=== PATIENT | female | born 1995 | race Two or more races ===

== ENCOUNTER 2017-08-15 20:00 | Inpatient (IN) | payer BC, OTHER ==
[~2017-08-15] VITALS: Ht 157.5 cm; Wt 68.4 kg
[2017-08-15] MEDS ORDERED: HYDROCODONE/APAP (5/325) TAB PO PRN (22:30)
[2017-08-15] MEDS ORDERED: CARBOPROST 250 MCG INJ IM PRN (22:30)
[2017-08-15] MEDS ORDERED: LACTATED RINGER'S 1,000 ML IV PRN (22:30)
[2017-08-15] MEDS ORDERED: OXYTOCIN 30 UNITS/LR 500 ML IV PRN (22:30)
[2017-08-15] MEDS ORDERED: BUTORPHANOL 2 MG INJ IV PRN ×2 (22:30)
[2017-08-15] MEDS ORDERED: OXYTOCIN 30 UNITS/LR 500 ML IV SCH ×3 (22:30)
[2017-08-15] MEDS ORDERED: IBUPROFEN 600 MG TAB PO PRN (22:30)
[2017-08-15] MEDS ORDERED: LIDOCAINE 1% (MPF) 30 ML INJ INJ PRN (22:30)
[2017-08-15] MEDS ORDERED: METHYLERGONOVINE 0.2 MG INJ IM PRN (22:30)
[2017-08-15] MEDS ORDERED: MISOPROSTOL 200 MCG TAB PR PRN (22:30)
[2017-08-15 22:37] LABS: BASOPHILS % 0.3 % (0.0-2.0); EOSINOPHILS # 0.5 10^3/ul (0.0-0.5); EOSINOPHILS % 4.2 % (0.0-7.0); HEMATOCRIT 32.5 % (37.0-47.0); LYMPHOCYTES # 2.1 10^3/ul (0.8-2.9); LYMPHOCYTES % 17.9 % (15.0-51.0); MEAN CORPUSCULAR HEMOGLOBIN 30.6 pg (29.0-33.0); MEAN CORPUSCULAR HGB CONC 33.8 g/dl (32.0-37.0); MEAN CORPUSCULAR VOLUME 90.3 fl (82.0-101.0); MEAN PLATELET VOLUME 9.7 fl (7.4-10.4); MONOCYTE # 0.8 10^3/ul (0.3-0.9); MONOCYTES % 6.7 % (0.0-11.0); NEUTROPHIL # 8.3 10^3/ul (1.6-7.5); NEUTROPHILS % 70.1 % (39.0-77.0); PLATELET COUNT 208 10^3/UL (140-415); RED CELL DISTRIBUTION WIDTH 14.4 % (11.5-14.5); WHITE BLOOD COUNT 11.8 10^3/ul (4.8-10.8)
[2017-08-15] MEDS: LACTATED RINGER'S 1,000 ML IV SCH (22:38)
[2017-08-15 22:55] LABS: INR 0.91; PARTIAL THROMBOPLASTIN TIME 27.1 Sec (25.0-35.0); PROTIME 12.3 Sec (12.2-14.2)
[2017-08-16 04:17] VITALS: Ht 157.5 cm; Wt 68.4 kg
[2017-08-16 04:19] VITALS: BP 118/75; PULSE 98; RESP 18
[2017-08-16] MEDS: LACTATED RINGER'S 1,000 ML IV SCH ×2 (04:55→11:00)
[2017-08-16] MEDS ORDERED: FENTAnyl 2MCG/ML-ROPIV 0.2% 100 ML ONE (08:44)
[2017-08-16] MEDS ORDERED: DIPHENHYDRAMINE 50 MG INJ IV PRN (10:30)
[2017-08-16] MEDS ORDERED: NALOXONE (0.4 MG/ML) INJ IV PRN (10:30)
[2017-08-16] MEDS ORDERED: FENTAnyl 2MCG/ML-ROPIV 0.2% 100 ML BAG EPI SCH (10:30)
[2017-08-16] MEDS ORDERED: ONDANSETRON 4 MG INJ IV PRN (10:30)
[2017-08-16] MEDS: LACTATED RINGER'S 1,000 ML IV* SCH ×2 (16:09→20:19)
--- NOTE | 2017-08-16 16:15 | LDN ---
Date/Time of Note Date/Time of Note DATE: 08/16/17 TIME: 16:11 Delivery Summary of a viable baby girl weighing 3495 grams or 7# 11 oz, 20" long, and with Apgars of 9/9. Weeks of Gestation 39w 1d Placenta Delivered: Spontaneously Meconium: none Episiotomy: No Perineal laceration: 2 Laceration repair: Second degree perineal laceration repaired with 2-0 chromic. Anesthesia type: Epidural Estimated blood loss: 200 Sponge & Needle done & correct: Yes All needle counts correct: Yes Any foreign bodies felt in the: No (vagina) Problems: Infant Delivery Information Sex Infant Sex: female Apgars 1 Minute: 9 5 Minute: 9 Suctioning Nose & mouth suctioned at marlys: Yes Delee suction performed: No Umbilical Cord Umbilical cord with: 3 Vessels Cord presentations: no nuchal cord Cord Blood was obtained: Yes Mother & Baby Disposition Disposition Mom & Baby to Maternity; Good: Yes Baby to NICU: No ANNIE REDMOND MD Aug 16, 2017 16:15
--- NOTE | 2017-08-16 16:18 | HP ---
Date/Time of Note Date/Time of Note DATE: 08/16/17 TIME: 16:15 OB - History Hx of Present Free Text/Dictation 22 y.o. G12 with an IUP at 39 weeks at admission, admitted for induction of labor. Estimated Due Date: Aug 22, 2017 : 1 Para: 0 Care: Good Care Ultrasounds: Normal mid trimester US Obstetrical Complications: None Medical Complications: None Other Concerns: PMHx: none. PSHx: none. NKDA. Past Family/Social History * Past Medical, Surgical, Family and Obstetric Histories reviewed from chart. Blood Type: A+ Rubella: immune RPR/VDRL: Negative GBS Status: Unknown HBsAG: Negative OB Admission Exam Vital Signs Vital Signs Vital Signs Date Time Temp Pulse Resp B/P Pulse Ox O2 Delivery O2 Flow Rate FiO2 08/16/17 04:19 98.4 98 18 118/75 100 Room Air Physical Exam HEENT: WNL Heart: Rhythm Normal Lungs: Clear Abdomen: WNL Extremities: Normal Reflexes: Normal Cervical Dilatation: 3cm Effacement: Other (80%) Station: -2 Membranes: Intact Amniotic Fluid: Clear Heart Rate: 140's Accelerations: Accelerations Present Decelerations: No Decelerations Varibility: Moderate Contractions on Admission: >10 Minutes Apart Last 72 hours Lab Results CBC & BMP 08/15/17 22:27 OB Assessment/Plan Reason for admission: induction of labor Plan: Induction Induction Method: per Pitocin Protocol ANNIE REDMOND MD Aug 16, 2017 16:18
[2017-08-16] MEDS ORDERED: MISOPROSTOL 200 MCG TAB PR PRN (16:30)
[2017-08-16] MEDS ORDERED: METHYLERGONOVINE 0.2 MG INJ IM PRN (16:30)
[2017-08-16] MEDS ORDERED: CARBOPROST 250 MCG INJ IM PRN (16:30)
[2017-08-16] MEDS ORDERED: OXYTOCIN 30 UNITS/LR 500 ML IV PRN (16:30)
[2017-08-16] MEDS ORDERED: LANOLIN 7 GM TUBE TOP PRN (16:30)
[2017-08-16] MEDS ORDERED: HYDROCODONE/APAP (5/325) TAB PO PRN (16:30)
[2017-08-16 18:18] VITALS: BP 138/84; PULSE 100; RESP 20
[2017-08-16 18:35] VITALS: BP 135/80; PULSE 98; RESP 18
[2017-08-16] MEDS: IBUPROFEN 600 MG TAB PO SCH ×2 (18:50→23:42)
[2017-08-16] MEDS: BENZOCAINE 20% 56 ML SPRAY TOP PRN (18:51)
[2017-08-16] MEDS: WITCH HAZEL/GLYCERIN PAD PR PRN ×2 (18:51→18:52)
[2017-08-16 20:00] VITALS: BP 132/65; PULSE 110; RESP 18
[2017-08-16] MEDS ORDERED: INFLUENZA VIRUS VACCINE 0.5 ML SYG IM* ONE (21:00)
[2017-08-17 03:55] VITALS: BP 127/67; PULSE 91; RESP 20
[2017-08-17] MEDS: IBUPROFEN 600 MG TAB PO SCH ×3 (05:26→17:25)
[2017-08-17] MEDS: LACTATED RINGER'S 1,000 ML IV* SCH (08:09)
[2017-08-17 08:22] LABS: BASOPHIL # 0.1 10^3/ul (0.0-0.1); BASOPHILS % 0.3 % (0.0-2.0); EOSINOPHILS # 0.4 10^3/ul (0.0-0.5); EOSINOPHILS % 2.7 % (0.0-7.0); HEMATOCRIT 29.4 % (37.0-47.0); HEMOGLOBIN 9.5 g/dl (12.0-16.0); LYMPHOCYTES # 2.2 10^3/ul (0.8-2.9); LYMPHOCYTES % 13.9 % (15.0-51.0); MEAN CORPUSCULAR HEMOGLOBIN 29.4 pg (29.0-33.0); MEAN CORPUSCULAR HGB CONC 32.3 g/dl (32.0-37.0); MONOCYTE # 1.1 10^3/ul (0.3-0.9); MONOCYTES % 7.2 % (0.0-11.0); NEUTROPHIL # 11.7 10^3/ul (1.6-7.5); NEUTROPHILS % 75.2 % (39.0-77.0); PLATELET COUNT 181 10^3/UL (140-415); RED BLOOD COUNT 3.23 10^6/ul (4.20-5.40); RED CELL DISTRIBUTION WIDTH 14.5 % (11.5-14.5); WHITE BLOOD COUNT 15.5 10^3/ul (4.8-10.8)
[2017-08-17 08:30] VITALS: BP 116/65; PULSE 84; RESP 18
[2017-08-17 11:54] VITALS: BP 112/66; PULSE 86; RESP 18
[2017-08-17 15:50] VITALS: BP 123/85; PULSE 82; RESP 16
[2017-08-17 19:40] VITALS: BP 121/61; PULSE 93; RESP 18
[2017-08-17] MEDS: BENZOCAINE 20% 56 ML SPRAY TOP PRN (20:05)
[2017-08-17] MEDS: WITCH HAZEL/GLYCERIN PAD PR PRN (20:05)
--- NOTE | 2017-08-17 21:51 | QN ---
Documentation Comment PPD #1 Pt doing well. w/o a problem.Rash is getting better quickly. T=98.4 BP 121/61 Fundus is firm. Lochia minimal Ext NT, 1+ edema. WBC 15.5 Hgb 9.5 Plts 181K P: D/C tomorrow. ANNIE REDMOND MD Aug 17, 2017 21:51
[2017-08-17] MEDS: DOCUSATE SODIUM 100 MG CAP PO SCH (23:15)
[2017-08-18 04:10] VITALS: BP 114/69; PULSE 76; RESP 20
[2017-08-18] MEDS: IBUPROFEN 600 MG TAB PO SCH ×3 (05:44→12:41)
[2017-08-18 07:45] VITALS: BP 128/75; PULSE 89; RESP 18
[2017-08-18] MEDS ORDERED: DIPHTH/TET/ACEL PERTUSS (ADULT) 0.5 ML VIAL IM* ONE (09:00)
--- NOTE | 2017-08-18 09:27 | PD.PPDC ---
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
--- NOTE | 2017-08-18 09:29 | DS ---
Date/Time of Note Date/Time of Note DATE: 08/18/17 TIME: 09:28 Obstetrical Discharge Record Final Diagnosis Final Diagnosis: Term delivered Vaginal Delivery Obstetrical Delivery: Spontaneous, Laceration, Repaired Complications Augmentation: Yes Induction: Yes Condition on Discharge Physical Assessment Last Vitals: T=98.1 BP 128/75 Voiding: Yes Bowel Movement: Yes Breast: Filling Fundus: Firm Episiotomy: Laceration intact. Calf Tenderness: No Patient Condition: Good ANNIE REDMOND MD Aug 18, 2017 09:29
[2017-08-18] MEDS: DOCUSATE SODIUM 100 MG CAP PO SCH (10:15)
== END 2017-08-18 13:40 | disposition home or self-care (01) | DRG 775 ==
LOC: L-D 20:26 → PP1 08-16 18:23
PROVIDERS: ADMIT Obstetrics & Gynecology; ATTEND Obstetrics & Gynecology
PROC: 10E0XZZ Delivery of Products of Conception, External Approach (ICD-10-PCS; principal; 2017-08-16)
PROC: 0KQM0ZZ Repair Perineum Muscle, Open Approach (ICD-10-PCS; 2017-08-16)
PROC: 3E0P3VZ Introduction of Hormone into Female Reproductive, Percutaneous Approach (ICD-10-PCS; 2017-08-16)
DX: O70.1 Second degree perineal laceration during delivery (principal); Z37.0 Single live birth; Z3A.39 39 weeks gestation of pregnancy
CPT/HCPCS: 62319; 85025; 85610; 85730; 86592; 86900; 86901; 90686; 90715; J2405; J2590; J3010; J7120